=== PATIENT | male | born 1985 | race Caucasian/White ===

== ENCOUNTER 2023-06-24 20:42 | Emergency (ER) | payer OTHER ==
[2023-06-24] MEDS ORDERED: Ketorolac 30 MG/ML SDV IM ONE (21:43)
[2023-06-24] MEDS ORDERED: Amoxicillin/Clavulanate K 875-125 MG Tab PO ONE (21:43)
== END 2023-06-24 22:11 | disposition home or self-care (01) ==
LOC: JD.ED 20:42
DX: K04.7 Periapical abscess without sinus (principal); K02.9 Dental caries, unspecified
CPT/HCPCS: 96372; 99282; A9270; J1885; 99283

== ENCOUNTER 2023-12-15 19:30 | Emergency (ER) | payer OTHER ==
[2023-12-15] MEDS: Diphtheria,Pertussis(Acell),Tetanus Vaccine 0.5 ML Syringe IM ONE (22:57)
[2023-12-15] MEDS: Acetaminophen 325 MG Tab PO ONE (22:57)
[2023-12-15] MEDS: Ibuprofen 600 MG Tab PO ONE (23:54)
== END 2023-12-15 23:57 | disposition home or self-care (01) ==
LOC: MERGE 19:30 → JD.ED 19:30
DX: S76.211A Strain of adductor muscle, fascia and tendon of right thigh, initial encounter (principal); S40.012A Contusion of left shoulder, initial encounter; S70.01XA Contusion of right hip, initial encounter; S50.311A Abrasion of right elbow, initial encounter; F17.210 Nicotine dependence, cigarettes, uncomplicated; Z23 Encounter for immunization; Z86.16 Personal history of COVID-19; V18.4XXA Pedal cycle driver injured in noncollision transport accident in traffic accident, initial encounter; Y93.89 Activity, other specified
CPT/HCPCS: 73030; 74176; 90715; A9270; 90471; 99283; 99284-25